=== PATIENT | female | born 2000 | race Hispanic/Latino ===

== ENCOUNTER 2020-02-03 23:23 | Emergency (ER) | payer OTHER ==
[~2020-02-03] VITALS: Ht 154.9 cm; Wt 73.0 kg
--- NOTE | 2020-02-03 23:55 | Emergency Department Note ---
History of Present Illnes History of Present Illness Chief Complaint: Extremity Trauma/Pain History of Present Illness This is a 19 year old female arrived to the ED with complaints of pain and swelling to left hand- patient states she is severely limited spiders and is worried this is a spider bite, patient states she is very stressed out and feels like her hand is going to explode.. 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 Historian: Patient Arrival Mode: Car Onset (how long ago): minute(s) Radiation: Reports non-radiation Severity: mild Onset quality: sudden Duration (how long): hour(s) Progression: unchanged Chronicity: new Relieving factors: none Exacerbating factors: none Past Medical/Family History Physician Review I have reviewed the patient's past medical and family history. Any updates have been documented here. Past Medical History Recent Fever: No Clinical Suspicion of Infectio: No New/Unexplained Change in Ment: No Past Medical History: None Past Surgical History: None Social History Smoking Cessation: Never Smoker Counseling Performed: No Alcohol Use: Social Physically hurt or threatened: No Review of Systems Review of Systems Integumentary: Reports as per HPI, Reports change in color Physical Exam Related Data Allergies: Uncoded Allergies: SPIDERS (Allergy, Unknown, 02/03/20) Triage Vital Signs Vital Signs Date Time Temp Pulse Resp B/P (MAP) Pulse Ox O2 Delivery O2 Flow Rate FiO2 02/03/20 23:37 98.3 66 18 118/94 100 Room Air Vital signs reviewed: Yes Physical Exam CONSTITUTIONAL Constitutional: Present well-developed, Present well-nourished HENT HENT: Present normocephalic, Present atraumatic, Present oropharynx clear/moist, Present nose normal HENT L/R: Present left ext ear normal, Present right ext ear normal EYES Eyes: Reports PERRL, Reports conjunctivae normal NECK Neck: Present ROM normal PULMONARY Pulmonary: Present effort normal, Present breath sounds normal CARDIOVASCULAR Cardiovascular: Present regular rhythm, Present heart sounds normal, Present capillary refill normal, Present normal rate GASTROINTESTINAL Abdominal: Present soft, Present nontender, Present bowel sounds normal GENITOURINARY Genitourinary: Present exam deferred SKIN Skin: Present warm, Present dry MUSCULOSKELETAL Musculoskeletal: Present tenderness, Present swelling, Present other (mild erythema noted over third digit dorsal aspect, blanches to touch, no eschar, no necrosis, no cellulitis, normal DP/PT pulses, normal motor function with soft compartments) NEUROLOGICAL Neurological: Present alert, Present oriented x 3, Present no gross motor or sensory deficits PSYCHOLOGICAL Psychological: Present mood/affect normal, Present judgement normal Assessment & Plan Medical Decision Making MDM 19-year-old well-appearing female arrived to the ED with concerns of a bug bite. On exam patient has no concerning findings. No bite noted. Mild erythema noted over third digit. Patient given iodine and Hibiclens soak and discharged home on Keflex. QUESTIONS answered. Patient stable for discharge. Assessment & Plan Final Impression: (1) Bite from insect (2) Cellulitis Depart Disposition: HOME, SELF-CARE Last Vital Signs Date Time Temp Pulse Resp B/P (MAP) Pulse Ox O2 Delivery O2 Flow Rate FiO2 02/03/20 23:37 98.3 66 18 118/94 100 Room Air BRIAN SMITH DO Feb 03, 2020 23:55
[2020-02-04] MEDS ORDERED: KEFLEX500 MG PO (00:46)
[2020-02-04 01:00] VITALS: BP 115/66
== END 2020-02-04 01:16 | disposition home or self-care (01) ==
LOC: ER 23:49
DX: L03.114 Cellulitis of left upper limb (principal); M79.642 Pain in left hand; S60.562A Insect bite (nonvenomous) of left hand, initial encounter
CPT/HCPCS: 99283

== ENCOUNTER 2020-02-06 13:50 | Emergency (ER) | payer OTHER ==
[~2020-02-06] VITALS: Ht 154.9 cm; Wt 72.6 kg
[~2020-02-06 13:50] MED LIST: KEFLEX500 MG PO
--- OUTSIDE RECORDS SUMMARY | 2020-02-06 14:41 | XMS REPORT | Continuity of Care Document ---
Author Author [facility] Organization [facility] Address [address] [place] [id number] Phone Unavailable Care Team Providers Care Yarding Supervisor Name Role Phone MD Keiko RIGGS PCP Payers Payer Name Policy Type Policy Number Effective Date Expiration Date Keiko Odell [facility] [id number] 2019 00:00:00 [facility] Problems Condition Name Condition Details Condition Category Status Onset Date Resolution Date Last Treatment Date Treating Clinician Comments Source Insect bite Problem Active [facility] Cellulitis Problem Active [facility] Allergies, Adverse Reactions, Alerts Allergy Name Allergy Type Status Severity Reaction(s) Onset Date Inacti ve Date Treating Clinician Comments Source SPIDERS Allergy to substance Active 2020-02-03 00:00:00 [facility] Social History Social Habit Start Date Stop Date Quantity Comments Source Sex Assigned At 2000 00:00:00 2000 00:00:00 Female [facility] Medications Ordered Medication Name Filled Medication Name Start Date Stop Da te Current Medication? Ordering Clinician Indication Dosage Frequency Signature (SIG) Comments Components Source Cephalexin Monohydrate (Keflex) 500 Mg CAPSULE Cephale li Monohydrate (Keflex) 500 Mg CAPSULE 2020-02-04 00:46:00 Yes 500 Every 6 H ours [facility] Vital Signs Vital Name Observation Time Observation Value Comments Source Weight 2020-02-03 23:37:00 161 [lb_av] [facility] BMI (Body Mass Index) 2020-02-03 23:37:00 30.4 kg/m2 [facility] Procedures This patient has no known procedures. Plan of Care Planned Activity Planned Date Details Comments Source Instructions Cellulitis [facility] Encounters Start Date/Time End Date/Time Encounter Type Admission Type [facility] Care Department Encounter ID Source 2020-02-03 23:49:00 2020-02-04 01:16:00 Departed Emergency Room [facility] [id number] [facility] Results This patient has no known results.
--- NOTE | 2020-02-06 14:54 | Emergency Department Note ---
History of Present Illnes History of Present Illness Chief Complaint: Psychiatric History of Present Illness This is a 19 year old female arrives to the ED after taking 10 tablets of Lexapro in an attempt to kill herself. Patient states she has done many attempts in the past. 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 Any updates have been documented here. (BRIAN SMITH DO) Past Medical History Recent Fever: No Clinical Suspicion of Infectio: No New/Unexplained Change in Ment: No Past Medical History: None Past Surgical History: None (BRIAN SMITH, ) Social History Alcohol Use: Social Any Illegal Drug Use: Yes Physically hurt or threatened: No (BRIAN SMITH DO) Review of Systems Review of Systems Constitutional: Reports no symptoms EENTM: Reports no symptoms Cardiovascular: Reports no symptoms Respiratory: Reports no symptoms Gastrointestinal: Reports no symptoms Genitourinary: Reports no symptoms Musculoskeletal: Reports no symptoms Integumentary: Reports no symptoms Neurological: Reports no symptoms Psychological: Reports as per HPI, Reports depressed, Reports emotional problems Endocrine: Reports no symptoms Hematological/Lymphatic: Reports no symptoms (BRIAN SMITH DO) Physical Exam Related Data Allergies: Uncoded Allergies: SPIDERS (Allergy, Unknown, 02/03/20) Triage Vital Signs Vital Signs Date Time Temp Pulse Resp B/P (MAP) Pulse Ox O2 Delivery O2 Flow Rate FiO2 02/06/20 14:24 99.0 85 18 114/70 100 Room Air Vital signs reviewed: Yes (BRIAN SMITH DO) Physical Exam CONSTITUTIONAL Constitutional: Present well-developed, Present well-nourished HENT HENT: Present normocephalic, Present atraumatic, Present oropharynx clear/moist, Present nose normal HENT L/R: Present left ext ear normal, Present right ext ear normal EYES Eyes: Reports PERRL, Reports conjunctivae normal NECK Neck: Present ROM normal PULMONARY Pulmonary: Present effort normal, Present breath sounds normal CARDIOVASCULAR Cardiovascular: Present regular rhythm, Present heart sounds normal, Present capillary refill normal, Present normal rate GASTROINTESTINAL Abdominal: Present soft, Present nontender, Present bowel sounds normal GENITOURINARY Genitourinary: Present exam deferred SKIN Skin: Present warm, Present dry MUSCULOSKELETAL Musculoskeletal: Present ROM normal NEUROLOGICAL Neurological: Present alert, Present oriented x 3, Present no gross motor or sensory deficits PSYCHOLOGICAL Psychological: Present mood/affect normal, Present judgement normal (BRIAN SMITH, ) Results Laboratory Laboratory Laboratory Tests Test 02/06/20 14:35 Lab results reviewed: Yes Laboratory comments Laboratory Tests Test 02/06/20 14:35 White Blood Count 9.03 x10e3/uL (4.8-10.8) Red Blood Count 4.32 x10e6/uL (3.6-5.1) Hemoglobin 12.0 g/dL (12.0-16.0) Hematocrit 36.9 % (34.2-44.1) Mean Corpuscular Volume 85.4 fL (81-99) Mean Corpuscular Hemoglobin 27.8 pg (28-32) Mean Corpuscular Hemoglobin Concent 32.5 g/dL (31-35) Red Cell Distribution Width 13.8 % (11.7-14.4) Platelet Count 270 x10e3/uL (140-360) Neutrophils (%) (Auto) 75.4 % (38.7-80.0) Lymphocytes (%) (Auto) 18.8 % (18.0-39.1) Monocytes (%) (Auto) 4.7 % (4.4-11.3) Eosinophils (%) (Auto) 0.7 % (0.0-6.0) Basophils (%) (Auto) 0.2 % (0.0-1.0) Neutrophils # (Auto) 6.8 (2.1-6.9) Lymphocytes # (Auto) 1.7 (1.0-3.2) Monocytes # (Auto) 0.4 (0.2-0.8) Eosinophils # (Auto) 0.1 (0.0-0.4) Basophils # (Auto) 0.0 (0.0-0.1) Absolute Immature Granulocyte (auto 0.02 x10e3/uL (0-0.1) Sodium Level 139 mmol/L (136-145) Potassium Level 3.7 mmol/L (3.5-5.1) Chloride Level 111 mmol/L (98-107) Carbon Dioxide Level 17 mmol/L (22-29) Anion Gap 14.7 mmol/L (8-16) Blood Urea Nitrogen 11 mg/dL (7-26) Creatinine 0.68 mg/dL (0.57-1.11) Estimat Glomerular Filtration Rate > 60 ML/MIN (60-) BUN/Creatinine Ratio 16 (6-25) Glucose Level 96 mg/dL (74-118) Calcium Level 9.3 mg/dL (8.4-10.2) Total Bilirubin 0.4 mg/dL (0.2-1.2) Aspartate Amino Transf (AST/SGOT) 16 IU/L (5-34) Alanine Aminotransferase (ALT/SGPT) 13 IU/L (0-55) Alkaline Phosphatase 69 IU/L (40-150) Creatine Kinase 128 IU/L (29-168) Creatine Kinase MB 0.70 ng/mL (0-5.0) Troponin I 0.006 ng/mL (0-0.300) Total Protein 7.7 g/dL (6.5-8.1) Albumin 4.2 g/dL (3.5-5.0) Globulin 3.5 g/dL (2.3-3.5) Albumin/Globulin Ratio 1.2 (0.8-2.0) Salicylates Level < 5.0 mg/dL (0-30) Acetaminophen Level < 3.0 ug/mL (10-30) Ethyl Alcohol Level < 10.0 mg/dL (0.0-10.0) (BRIAN SMITH, ) Imaging Imaging results reviewed: Yes (BRIAN SMITH DO) Procedures 12 Lead ECG Interpretation ECG Interpretation : ECG: 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 Patient monitored in the ED and medically cleared for formal psychiatric evaluation. MAT team consulted. Case signed out to Dr. Covarrubias to follow-up MAT team recommendations (BRIAN SMITH DO) MDM Spoke with Dr. Hauser at [facility] who has agreed to accept the patient for SI (SUYAPA ROBISON MD) Assessment & Plan Final Impression: (1) Intentional overdose of drug in tablet form (2) Suicidal intent (3) Suicidal ideations (4) Depression (BRIAN SMITH DO) Depart Disposition: XFER TO PSYCH HOSP/UNIT Last Vital Signs Date Time Temp Pulse Resp B/P (MAP) Pulse Ox O2 Delivery O2 Flow Rate FiO2 02/06/20 14:24 99.0 85 18 114/70 100 Room Air (BRIAN SMITH DO) Home Meds Active Scripts Cephalexin Monohydrate (KEFLEX) 500 Mg Capsule, 500 MG PO Q6HR, #40 Prov:BRIAN SMITH DO 02/04/20 BRIAN SMITH DO Feb 06, 2020 14:54 SUYAPA ROBISON MD Feb 06, 2020 20:59
[2020-02-06 14:56] LABS: BASOPHILS % 0.2 % (0.0-1.0); EOSINOPHILS # (AUTO) 0.1 (0.0-0.4); EOSINOPHILS % 0.7 % (0.0-6.0); HEMATOCRIT 36.9 % (34.2-44.1); LYMPHOCYTES # (AUTO) 1.7 (1.0-3.2); LYMPHOCYTES % 18.8 % (18.0-39.1); MEAN CORPUSCULAR HEMOGLOBIN 27.8 pg (28-32); MEAN CORPUSCULAR HGB CONC 32.5 g/dL (31-35); MEAN CORPUSCULAR VOLUME 85.4 fL (81-99); MONOCYTES # (AUTO) 0.4 (0.2-0.8); MONOCYTES % 4.7 % (4.4-11.3); NEUTROPHILS # (AUTO) 6.8 (2.1-6.9); NEUTROPHILS % 75.4 % (38.7-80.0); PLATELET COUNT 270 x10e3/uL (140-360); RED BLOOD COUNT 4.32 x10e6/uL (3.6-5.1); RED CELL DISTRIBUTION WIDTH 13.8 % (11.7-14.4)
[2020-02-06 15:19] LABS: SALICYLATE < 5.0 mg/dL (0-30)
[2020-02-06 15:24] LABS: ALANINE AMINOTRANSFERASE 13 IU/L (0-55); ALBUMIN 4.2 g/dL (3.5-5.0); ALBUMIN/GLOBULIN RATIO 1.2 (0.8-2.0); ALKALINE PHOSPHATASE 69 IU/L (40-150); ANION GAP 14.7 mmol/L (8-16); BLOOD UREA NITROGEN 11 mg/dL (7-26); BUN/CREATININE RATIO 16 (6-25); CALCIUM 9.3 mg/dL (8.4-10.2); CARBON DIOXIDE 17 mmol/L (22-29); CHLORIDE 111 mmol/L (98-107); CREATINE KINASE 128 IU/L (29-168); CREATININE, SERUM 0.68 mg/dL (0.57-1.11); EST GLOMERULAR FILTRATION RATE > 60 ML/MIN (60-); GLUCOSE 96 mg/dL (74-118); POTASSIUM 3.7 mmol/L (3.5-5.1); SODIUM 139 mmol/L (136-145)
--- NOTE | 2020-02-06 16:03 | NUR ---
SPOKE WITH OFFICER AND PT, ONCE PT IS MEDICALLY CLEARED THEN THE ED STAFF CAN CALL THE MAT TEAM FOR PLACEMENT OPTIONS, OBTAINED INSURANCE CARD AND ID AND PROVIDED TO REGISTRATION, OFFICER [place] [employer]ITE #[id number] STATES AND BELIEVES PT NEEDS TO BE GINI BECAUSE SHE TOOK 10 TABS OF ESCITALOPAAM IN A SUICIDE ATTEMPT.
[2020-02-06 17:03] LABS: AMPHETAMINES SCREEN,URINE NEGATIVE (NEGATIVE); BENZODIAZEPINES SCREEN,URINE NEGATIVE (NEGATIVE); PHENCYCLIDINE SCREEN,URINE NEGATIVE (NEGATIVE)
--- NOTE | 2020-02-06 17:08 | NUR ---
MAT TEAM CALLED; SPOKE WITH GELA
--- NOTE | 2020-02-06 17:29 | NUR ---
PT WANTS ME TO CALL HER MOTHER; NUMBER UNKNOWN
--- NOTE | 2020-02-06 17:44 | NUR ---
spoke with Trini from the mat team; will be here in approx 15min.
--- NOTE | 2020-02-06 18:02 | NUR ---
SHELBY FROM THE MAT TEAM IS IN THE ROOM
--- NOTE | 2020-02-06 20:53 | NUR ---
SPOKE WITH ADELINA FROM [facility]; DR. LOPEZ [phone]; AWAITING APPROVAL
--- NOTE | 2020-02-06 20:56 | NUR ---
DR. ROBISON ON THE PHONE WITH DR. LOPEZ
--- NOTE | 2020-02-06 20:58 | NUR ---
[facility] [place] [facility] ACC[facility]PTED
--- NOTE | 2020-02-06 21:54 | NUR ---
REPORTED OFF TO SHARMILA MARIE FOR CONTINUITY OF CARE
--- NOTE | 2020-02-06 23:00 | NUR ---
report rc'd from mandy noel rn. assumed care of pt at this time. to room to assess. pt noted anxious, crying and pleading to not be sent to psych facility. er md to room to talk c patient. charge nurse to room. discussed risk of not seeking treatment for psych issues. after talking c patient about rationale for seeking psych treatment, pt calm and agrees to plan of care. pt request to call and speak to mother and update on her condition. md states that patient may use phone under supervision to speak to mother. phone provided. pt called mother. phone secured p call completed. pt calm at this time.
--- NOTE | 2020-02-07 | NUR ---
pt resting quietly on stretcher. no distress noted. resp even and unlabored on ra. 1 to 1 sitter remains at bedside.
--- NOTE | 2020-02-07 09:42 | NUR ---
CALLED MAT TEAM AND RECEIVED UPDATE, PT IS ACCEPTED PENDING SWIM COACH FROM [facility], SPOKE WITH TODD AT [facility] OFFICE AND THEY WILL CALL IN ROUTE. EVERYTHING IS COMPLETED AND READY FOR DISCHARGE TO INPATIENT PSYCH FACILITY.
== END 2020-02-07 09:32 ==
LOC: ER 14:22
DX: T14.91XA Suicide attempt, initial encounter (principal); T43.222A Poisoning by selective serotonin reuptake inhibitors, intentional self-harm, initial encounter; F32.9 Major depressive disorder, single episode, unspecified
CPT/HCPCS: 36415; 80053; 80307; 80320; 80329; 82550; 82553; 84484; 85025; 93005; 99284

== ENCOUNTER 2024-04-18 11:09 | Emergency (ER) | payer OTHER ==
[~2024-04-18] VITALS: Ht 154.9 cm; Wt 72.6 kg
[2024-04-18 11:14] VITALS: PULSE 73; RESP 16; TEMP 98.6; O2SAT 100
[2024-04-18] MEDS ORDERED: CYCLOBENZAPRINE10 MG PO (14:17)
[2024-04-18] MEDS: CYCLOBENZAPRINE HCL 10 MG TAB PO ONE (14:53)
[2024-04-18] MEDS: KETOROLAC TROMETHAMINE 60 MG/2 ML VIAL IM ONE (14:53)
== END 2024-04-18 15:10 | disposition home or self-care (01) ==
LOC: ER 11:14
DX: M54.50 Low back pain, unspecified (principal); V43.52XA Car driver injured in collision with other type car in traffic accident, initial encounter; Y92.488 Other paved roadways as the place of occurrence of the external cause
CPT/HCPCS: 72131; 81025; 99283; J1885